=== PATIENT | female | born 1955 | race Caucasian/White ===

== ENCOUNTER 2017-02-02 11:34 | Emergency (ER) | payer BC ==
--- NOTE | 2017-02-02 11:51 | EDM.PDOC ---
ED HPI GENERAL MEDICAL PROBLEM - General Chief Complaint: Genitourinary Problem Stated Complaint: UTI symptoms Time Seen by Provider: 02/02/17 11:37 Source of Information: Reports: Patient, RN, RN Notes Reviewed History Limitations: Reports: No Limitations - History of Present Illness INITIAL COMMENTS - FREE TEXT/NARRATIVE: Patient presents to the ED at [facility] complaining of urinary frequency, urgency, and dysuria. Patient states her symptoms started this morning. No previous hx of cystitis. No hematuria. No back, abdominal, or pelvic pain. No fever or chills. No vaginal discharge. No odor to urine. Onset: Today - Related Data Allergies Allergy/AdvReac Type Severity Reaction Status Date / Time Penicillins Allergy Rash Verified 02/02/17 11:43 Home Meds: Home Meds Nitrofurantoin Knott/Macrocryst [Macrobid] 100 mg PO BID #14 cap 02/02/17 [Rx] Phenazopyridine HCl [Pyridium] 200 mg PO TID PRN #6 tablet 02/02/17 [Rx] cloNIDine HCl [Catapres] 0 mg PO BID 02/02/17 [History] ED ROS GENERAL - Review of Systems Review Of Systems: See Below Constitutional: Denies: Fever, Chills, Weakness Respiratory: Denies: Shortness of Breath, Cough Cardiovascular: Denies: Chest Pain, Palpitations GI/Abdominal: Denies: Abdominal Pain, Nausea, Vomiting : Reports: Dysuria, Frequency, Urgency. Denies: Hematuria Skin: Reports: No Symptoms Neurological: Reports: No Symptoms ED EXAM, RENAL/ - Physical Exam Exam: See Below Exam Limited By: No Limitations General Appearance: Alert, No Apparent Distress Respiratory/Chest: No Respiratory Distress, Lungs Clear, Normal Breath Sounds Cardiovascular: Regular Rate, Rhythm GI/Abdominal: Normal Bowel Sounds, Soft, Non-Tender (Female) Exam: Deferred Neurological: Alert, Oriented Skin Exam: Warm, Dry, Intact, Normal Color, No Rash Course - Vital Signs Last Recorded V/S: Last Vital Signs Temp 35.5 C 02/02/17 11:34 Pulse 81 02/02/17 11:34 Resp 16 02/02/17 11:34 BP 185/85 H 02/02/17 11:34 Pulse Ox 98 02/02/17 11:34 - Orders/Labs/Meds Orders: Active Orders 24 hr Category Date Time Status UA W/MICROSCOPIC [URIN] Stat Lab 02/02/17 11:54 Results Labs: Laboratory Tests 02/02/17 Range/Units 11:54 Urine Color Yellow (YELLOW) Urine Appearance Clear (CLEAR) Urine pH 7.0 (5.0-8.0) Ur Specific [place] 1.010 Urine Protein Negative (NEGATIVE) mg/dL Urine Glucose (UA) Negative (NEGATIVE) mg/dL Urine Ketones Negative (NEGATIVE) mg/dL Urine Occult Blood Moderate H (NEGATIVE) Urine Nitrite Negative (NEGATIVE) Urine Bilirubin Negative (NEGATIVE) Urine Urobilinogen 0.2 (0.2) EU/dL Ur Leukocyte Esterase Small H (NEGATIVE) Departure - Departure Time of Disposition: 12:03 Disposition: Home, Self-Care 01 Condition: Good Clinical Impression: Acute cystitis with hematuria - Discharge Information Prescriptions: Nitrofurantoin Knott/Macrocryst [Macrobid] 100 mg PO BID #14 cap Phenazopyridine HCl [Pyridium] 200 mg PO TID PRN #6 tablet PRN Reason: Spasms Instructions: Urinary Tract Infection, Adult Forms: ED Department Discharge Additional Instructions: 1. Stay well hydrated and rest 2. Take medication for the full coarse, even if you are feeling better 3. May use [id number] AZO or Cystex to help with bladder discomfort 4. May try cranberry juice 5. See your Primary as symptoms warrant - Problem List Review Problem List Initiated/Reviewed/Updated: Yes - My Orders Last 24 Hours: My Active Orders 02/02/17 11:54 UA W/MICROSCOPIC [URIN] Stat - Assessment/Plan Last 24 Hours: My Active Orders 02/02/17 11:54 UA W/MICROSCOPIC [URIN] Stat
== END 2017-02-02 12:10 | disposition home or self-care (01) ==
LOC: VM.ED 11:34
DX: N30.01 Acute cystitis with hematuria (principal); Z88.0 Allergy status to penicillin
CPT/HCPCS: 81001; 99283